=== PATIENT | male | born 1965 | race Hispanic/Latino ===

== ENCOUNTER 2016-07-19 11:10 | Emergency (ER) | payer OTHER ==
[2016-07-19 11:49] VITALS: BP 139/88
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
[2016-07-19] MEDS ORDERED: ULTRAM PO ONE (12:51)
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
== END 2016-07-19 14:01 | disposition home or self-care (01) ==
LOC: ED 11:10
DX: S39.012A Strain of muscle, fascia and tendon of lower back, initial encounter (principal); S13.4XXA Sprain of ligaments of cervical spine, initial encounter; I10 Essential (primary) hypertension; F90.9 Attention-deficit hyperactivity disorder, unspecified type; V89.2XXA Person injured in unspecified motor-vehicle accident, traffic, initial encounter; Y93.89 Activity, other specified; Y99.9 Unspecified external cause status; Y92.410 Unspecified street and highway as the place of occurrence of the external cause
CPT/HCPCS: 72128; 72131